=== PATIENT | male | born 1990 | race Caucasian/White ===

== ENCOUNTER 2017-05-12 10:11 | Emergency (ER) | payer SELFPAY ==
[~2017-05-12] VITALS: Ht 190.5 cm; Wt 78.5 kg
[2017-05-12 10:15] VITALS: BP 116/80
[2017-05-12] MEDS ORDERED: KETOROLAC TROMETH 60MG/2ML VIAL IM ONE (10:45)
== END 2017-05-12 12:53 | disposition home or self-care (01) ==
LOC: ER 10:11
DX: M85.68 Other cyst of bone, other site (principal); M25.532 Pain in left wrist; F17.210 Nicotine dependence, cigarettes, uncomplicated; W19.XXXA Unspecified fall, initial encounter; Y93.64 Activity, baseball; Y99.8 Other external cause status; Y92.89 Other specified places as the place of occurrence of the external cause; Z88.6 Allergy status to analgesic agent
CPT/HCPCS: 73110; 73200; 96372; 99284; J1885; 29125